=== PATIENT | male | born 1935 | race African-American/Black ===

== ENCOUNTER 2021-10-05 18:21 | Inpatient (IN) | payer OTHER ==
[~2021-10-05] VITALS: Ht 160 cm; Wt 70.8 kg
[2021-10-05] MEDS ORDERED: ACETAMINOPHEN 325MG TABLET PO STA (18:54)
[2021-10-05] MEDS ORDERED: IPRATROPIUM BROMIDE (0.02%) 0.5MG/2.5ML NEB HHN STA (18:54)
[2021-10-05] MEDS ORDERED: METHYLPREDNISOLONE SOD SUCC 125 MG/2 ML VIAL IV STA (18:54)
[2021-10-05] MEDS ORDERED: ALBUTEROL (0.083%) 2.5MG/3ML NEB HHN STA (18:54)
[2021-10-05] MEDS ORDERED: VANCOMYCIN 1 G PREMIX 200 ML IV ONE (19:00)
[2021-10-05] MEDS ORDERED: PIPERACILLIN/TAZ 3.375G PREMIX 50 ML IV ONE (19:00)
[2021-10-05] MEDS ORDERED: SODIUM CHLORIDE 0.9% 1,000 ML IV ONE (19:00)
[2021-10-05 19:21] LABS: HEMATOCRIT. 34.7 % (42.0-52.0); HEMOGLOBIN. 10.8 g/dL (14.0-18.0); MEAN CORPUSCULAR HEMOGLOBIN 25.2 pg (28.0-32.0); MEAN CORPUSCULAR VOLUME 81.3 fL (80.0-94.0); PLATELET 227 x1000/uL (130-400); RED BLOOD CELL COUNT 4.27 mill/uL (4.7-6.1); RED CELL DISTRIBUTION WIDTH 21.5 % (11.6-14.6)
[2021-10-05 19:27] LABS: PROTHROMBIN TIME 10.9 sec (9.6-11.0)
[2021-10-05 19:50] LABS: CHLORIDE 99 mEq/L (98-107)
[2021-10-05] MEDS ORDERED: SODIUM CHLORIDE 0.9% 1000ML BAG (SEPSIS BOLUS) IV ONE (20:30)
[2021-10-05 21:03] LABS: PLATELET ESTIMATE NORMAL
[2021-10-05 21:33] LABS: CLARITY URINE TURBID (CLEAR); COLOR URINE YELLOW (YELLOW); KETONES URINE TRACE (NEGATIVE); LEUKOCYTE ESTERASE URINE 3+ (NEGATIVE); NITRITE URINE NEGATIVE (NEGATIVE); OCCULT BLOOD URINE 2+ (NEGATIVE); PROTEIN URINE 2+ (NEGATIVE); SPECIFIC GRAVITY URINE 1.017 (1.005-1.030)
[2021-10-06] MEDS ORDERED: ALBUTEROL (0.083%) 2.5MG/3ML NEB HHN STA (01:17)
[2021-10-06] MEDS ORDERED: IPRATROPIUM BROMIDE (0.02%) 0.5MG/2.5ML NEB HHN STA (01:17)
[2021-10-06] MEDS ORDERED: MAGNESIUM 2 G PREMIX 50 ML IV ONE (01:30)
[2021-10-06] MEDS ORDERED: ACETAMINOPHEN 500MG TABLET PO SCH (02:00)
[2021-10-06] MEDS ORDERED: SODIUM CHLORIDE 0.9% 1,000 ML IV SCH (02:00)
[2021-10-06] MEDS ORDERED: ONDANSETRON HCL 4MG/2ML INJ IV PRN (08:15)
[2021-10-06] MEDS ORDERED: ALBUTEROL 6.7GM HFA INHALER ORI PRN (08:15)
[2021-10-06] MEDS ORDERED: LEVOFLOXACIN 500MG PREMIX 100 ML IV SCH ×2 (08:30→11:45)
[2021-10-06] MEDS: ENOXAPARIN 30MG/0.3ML SYR SUBCUT SCH (10:42)
[2021-10-06] MEDS ORDERED: ALBUTEROL (0.083%) 2.5MG/3ML NEB HHN PRN (11:45)
[2021-10-06] MEDS: IPRATROPIUM/ALBUTEROL 0.5-3(2.5)MG/3ML NEB HHN SCH (12:00)
[2021-10-06] MEDS: METHYLPREDNISOLONE SOD SUCC 40 MG/ML VIAL IV SCH ×2 (12:00→20:35)
[2021-10-06 18:26] VITALS: BP 132/72
[2021-10-06 20:27] VITALS: BP 106/68
[2021-10-06] MEDS: ACETAMINOPHEN 325MG TABLET PO PRN (20:56)
[2021-10-06 22:07] VITALS: BP 102/64
[2021-10-07] VITALS (13 sets, daily range): BP systolic 101–153; BP diastolic 59–87
[2021-10-07] MEDS: METHYLPREDNISOLONE SOD SUCC 40 MG/ML VIAL IV SCH ×3 (04:17→17:52)
[2021-10-07 07:17] LABS: HEMATOCRIT. 30.5 % (42.0-52.0); HEMOGLOBIN. 9.6 g/dL (14.0-18.0); MEAN CORPUSCULAR VOLUME 82.8 fL (80.0-94.0); MEAN PLATELET VOLUME 9.8 fl (7.4-10.4); PLATELET 142 x1000/uL (130-400); RED BLOOD CELL COUNT 3.68 mill/uL (4.7-6.1); RED CELL DISTRIBUTION WIDTH 21.8 % (11.6-14.6)
[2021-10-07] MEDS: ENOXAPARIN 30MG/0.3ML SYR SUBCUT SCH (08:40)
[2021-10-07] MEDS: IPRATROPIUM/ALBUTEROL 0.5-3(2.5)MG/3ML NEB HHN SCH ×3 (08:46→21:55)
[2021-10-07] MEDS: LEVOFLOXACIN 250MG PREMIX 50 ML IV SCH (10:39)
[2021-10-07] MEDS: ACETAMINOPHEN 325MG TABLET PO PRN ×2 (11:12→19:48)
[2021-10-07] MEDS ORDERED: AMLO2.5T2 MT (13:21)
[2021-10-07] MEDS ORDERED: CALC1TAB MT (13:21)
[2021-10-07] MEDS ORDERED: ASPI-1497 MT (13:21)
[2021-10-07] MEDS ORDERED: ALLO100T MT (13:21)
[2021-10-07] MEDS ORDERED: LEVO100T MT (13:21)
[2021-10-07] MEDS ORDERED: DABI75CA3 MT (13:21)
[2021-10-07] MEDS ORDERED: MAGN200T5 PO (13:21)
[2021-10-07] MEDS ORDERED: CHOL2000 (13:21)
[2021-10-07] MEDS ORDERED: OMEP20TA2 MT (13:21)
[2021-10-07] MEDS ORDERED: ATOR20TA65 MT (13:21)
[2021-10-07] MEDS ORDERED: LISI20TA31 MT (13:21)
[2021-10-07] MEDS ORDERED: BISO5TAB13 MT (13:21)
[2021-10-07] MEDS ORDERED: LEVE500T98 MT (13:21)
[2021-10-07] MEDS ORDERED: AZTREONAM 2 GM in DEXT 5% WATER 100 ML IV SCH (16:00)
[2021-10-07 17:01] LABS: PLATELET ESTIMATE NORMAL
[2021-10-07] MEDS ORDERED: GUAIFENESIN-DM 200MG-20MG/10ML UDC PO PRN (17:45)
[2021-10-08] VITALS (11 sets, daily range): BP systolic 130–160; BP diastolic 73–119
[2021-10-08] MEDS: IPRATROPIUM/ALBUTEROL 0.5-3(2.5)MG/3ML NEB HHN SCH ×6 (04:30→22:24)
[2021-10-08] MEDS: METHYLPREDNISOLONE SOD SUCC 40 MG/ML VIAL IV SCH (08:07)
[2021-10-08] MEDS: ACETAMINOPHEN 325MG TABLET PO PRN ×2 (08:07→19:44)
[2021-10-08] MEDS: ENOXAPARIN 30MG/0.3ML SYR SUBCUT SCH (08:07)
[2021-10-08] MEDS: LEVOFLOXACIN 250MG PREMIX 50 ML IV SCH (10:20)
[2021-10-08] MEDS ORDERED: AMLODIPINE 10MG TABLET PO SCH (11:15)
[2021-10-08 11:53] LABS: HEMATOCRIT. 31.8 % (42.0-52.0); HEMOGLOBIN. 9.8 g/dL (14.0-18.0); MEAN CORPUSCULAR VOLUME 80.9 fL (80.0-94.0); MEAN PLATELET VOLUME 9.9 fl (7.4-10.4); PLATELET 173 x1000/uL (130-400); RED BLOOD CELL COUNT 3.92 mill/uL (4.7-6.1); RED CELL DISTRIBUTION WIDTH 21.7 % (11.6-14.6)
[2021-10-08 12:45] LABS: CHLORIDE 107 mEq/L (98-107)
[2021-10-08] MEDS: DILTIAZEM HCL 5MG/ML 5ML VIAL IV PRN ×2 (14:51→21:06)
[2021-10-08] MEDS: DILTIAZEM HCL 60MG TABLET PO SCH ×2 (16:25→23:14)
[2021-10-08] MEDS: DILTIAZEM HCL 5MG/ML 5ML VIAL IV NR ×2 (16:39→18:47)
[2021-10-08] MEDS ORDERED: LEVO500T89 MT (17:56)
[2021-10-08 20:24] LABS: PLATELET ESTIMATE NORMAL
[2021-10-08] MEDS: AMIODARONE HCL 200 MG TABLET PO SCH (23:14)
[2021-10-08] MEDS ORDERED: DILTIAZEM HCL 5MG/ML 5ML VIAL IV PRN (23:45)
[2021-10-09] VITALS (13 sets, daily range): BP systolic 118–156; BP diastolic 65–85
[2021-10-09] MEDS: IPRATROPIUM/ALBUTEROL 0.5-3(2.5)MG/3ML NEB HHN SCH ×7 (02:07→23:15)
[2021-10-09] MEDS: AMIODARONE HCL 200 MG TABLET PO SCH ×3 (05:42→22:20)
[2021-10-09] MEDS: ACETAMINOPHEN 325MG TABLET PO PRN ×2 (05:42→19:14)
[2021-10-09] MEDS: DILTIAZEM HCL 60MG TABLET PO SCH ×3 (05:43→17:21)
[2021-10-09] MEDS: LEVOFLOXACIN 250MG PREMIX 50 ML IV SCH (09:03)
[2021-10-09] MEDS: ENOXAPARIN 30MG/0.3ML SYR SUBCUT SCH (09:04)
[2021-10-09] MEDS ORDERED: LEVOFLOXACIN 500MG PREMIX 100 ML IV SCH (20:00)
[2021-10-09] MEDS: SILDENAFIL CITRATE 20MG TABLET PO SCH (22:20)
[2021-10-10] VITALS (8 sets, daily range): BP systolic 117–138; BP diastolic 64–78
[2021-10-10] MEDS: DILTIAZEM HCL 60MG TABLET PO SCH ×3 (00:30→12:34)
[2021-10-10] MEDS: SILDENAFIL CITRATE 20MG TABLET PO SCH (05:43)
[2021-10-10] MEDS: AMIODARONE HCL 200 MG TABLET PO SCH (05:43)
[2021-10-10] MEDS: IPRATROPIUM/ALBUTEROL 0.5-3(2.5)MG/3ML NEB HHN SCH ×2 (08:01→12:02)
[2021-10-10] MEDS: ACETAMINOPHEN 325MG TABLET PO PRN (08:55)
[2021-10-10] MEDS ORDERED: ENOXAPARIN 40MG/0.4ML SYR SUBCUT SCH (09:00)
[2021-10-10 11:09] LABS: HEMATOCRIT. 32.4 % (42.0-52.0); HEMOGLOBIN. 10.2 g/dL (14.0-18.0); MEAN CORPUSCULAR HEMOGLOBIN 25.3 pg (28.0-32.0); MEAN PLATELET VOLUME 8.8 fl (7.4-10.4); PLATELET 213 x1000/uL (130-400); RED BLOOD CELL COUNT 4.05 mill/uL (4.7-6.1); RED CELL DISTRIBUTION WIDTH 21.8 % (11.6-14.6)
[2021-10-10 18:17] LABS: PLATELET ESTIMATE NORMAL
[2021-10-11] MEDS ORDERED: ENOXAPARIN 30MG/0.3ML SYR SUBCUT SCH (09:00)
[2021-10-11] MEDS ORDERED: LEVOFLOXACIN 750MG PREMIX 150 ML IV SCH (20:00)
== END 2021-10-10 14:38 | disposition home or self-care (01) | DRG 871 ==
LOC: ER 18:21 → MICUSO 20:41 → EDBEDREQ 20:58 → EDBEDREQSVC 20:58 → EDBEDREQTM 20:58 → MICUSO 10-06 05:22 → 3WST 10-06 18:17
PROVIDERS: ADMIT Internal Medicine; ATTEND Internal Medicine
DX: A41.51 Sepsis due to Escherichia coli [E. coli] (principal); N17.0 Acute kidney failure with tubular necrosis; J96.01 Acute respiratory failure with hypoxia; E44.0 Moderate protein-calorie malnutrition; E87.1 Hypo-osmolality and hyponatremia; J44.1 Chronic obstructive pulmonary disease with (acute) exacerbation; N39.0 Urinary tract infection, site not specified; E11.22 Type 2 diabetes mellitus with diabetic chronic kidney disease; I12.9 Hypertensive chronic kidney disease with stage 1 through stage 4 chronic kidney disease, or unspecified chronic kidney disease; N18.2 Chronic kidney disease, stage 2 (mild); I27.20 Pulmonary hypertension, unspecified; I48.91 Unspecified atrial fibrillation; D64.9 Anemia, unspecified; I35.0 Nonrheumatic aortic (valve) stenosis; Z20.822 Contact with and (suspected) exposure to COVID-19; G40.909 Epilepsy, unspecified, not intractable, without status epilepticus; R65.20 Severe sepsis without septic shock; Z87.891 Personal history of nicotine dependence; Z68.27 Body mass index [BMI] 27.0-27.9, adult; Z86.79 Personal history of other diseases of the circulatory system; Z83.3 Family history of diabetes mellitus; Z88.6 Allergy status to analgesic agent; Z88.0 Allergy status to penicillin; Z88.8 Allergy status to other drugs, medicaments and biological substances
CPT/HCPCS: 36415; 71045; 76770; 80048; 80053; 81003; 83036; 83605; 83880; 84145; 84484; 85025; 87077; 87186; 87804; 93005; 93306; 94640; 97162; 99291; J1650; J1956; J2543; J2920; J2930; J3370; J3475; J3490; J7030; J7060; U0003; U0005; A4315

== ENCOUNTER 2022-05-05 12:57 | Emergency (ER) | payer OTHER ==
[~2022-05-05] VITALS: Ht 175.3 cm; Wt 102.0 kg
[~2022-05-05 12:57] MED LIST: ALLO100T MT; AMLO2.5T2 MT; ASPI-1497 MT; ATOR20TA65 MT; BISO5TAB13 MT; CALC1TAB MT; CHOL2000; DABI75CA3 MT; ETOMIDATE 2MG/ML 10ML VIAL IV ONE; LEVE500T98 MT; LEVO100T MT; LEVO500T90 MT; LISI20TA31 MT; MAGN200T5 PO; OMEP20TA23 MT; VECURONIUM BROMIDE 10 MG/VIAL IV ONE
[2022-05-05] MEDS ORDERED: LEVETIRACETAM 1000MG PREMIX 100 ML IV ONE (13:15)
[2022-05-05] MEDS ORDERED: CEFTRIAXONE 1 G PREMIX 50 ML IV ONE (13:45)
[2022-05-05] MEDS ORDERED: SODIUM CHLORIDE 0.9% 1,000 ML IV ONE ×2 (13:45→16:00)
[2022-05-05] MEDS ORDERED: MIDAZOLAM 100MG/100ML PREMIX IV PRN (13:45)
[2022-05-05] MEDS ORDERED: FENTANYL 2500MCG/250ML PMX 250 ML IV PRN (13:45)
[2022-05-05] MEDS ORDERED: VANCOMYCIN 1G PREMIX 200 ML IV ONE (13:45)
[2022-05-05] MEDS ORDERED: NICARDIPINE 100 MG in SODIUM CHLORIDE 0.9% 60 ML IV ONE (14:00)
[2022-05-05] MEDS ORDERED: PROPOFOL 10 MG/ML 100 ML IV PRN (14:00)
[2022-05-05] MEDS ORDERED: NICARDIPINE 40 MG/200 ML PREMIX 200 ML IV PRN (14:00)
[2022-05-05] MEDS ORDERED: LEVETIRACETAM 1000MG PREMIX 100 ML IV SCH ×2 (14:30→22:00)
[2022-05-05] MEDS ORDERED: CEFTRIAXONE 1 G PREMIX 50 ML IV NR (14:30)
[2022-05-05 14:46] LABS: BG BASE EXCESS -9.7 mmol/L (-2.0-2.0); BG CARBOXYHEMOGLOBIN 0.8 % (0.5-1.5); BG DEOXYHEMOGLOBIN 0.4 % (0.0-5.0); BG FRACTION INSPIRED OXYGEN 100; BG METHEMOGLOBIN 0.3 % (0.0-1.5); BG OXYGEN SATURATION 99.6 % (92.0-98.5); BG OXYHEMOGLOBIN 98.5 % (94.0-97.0); BG PO2 265.6 mmHg (75.0-100.0); BG SAMPLE SITE RIGHT RADIAL; BG TOTAL HEMOGLOBIN 14.3 g/dL (12.0-18.0); BG VENT MODE VENT - AC
[2022-05-05 15:25] LABS: HEMATOCRIT. 42.4 % (42.0-52.0); HEMOGLOBIN. 13.4 g/dL (14.0-18.0); MEAN CORPUSCULAR VOLUME 95.2 fL (80.0-94.0); MEAN PLATELET VOLUME 9.6 fl (7.4-10.4); PLATELET 305 x1000/uL (130-400); RED BLOOD CELL COUNT 4.45 mill/uL (4.7-6.1)
[2022-05-05 16:25] LABS: CHLORIDE 101 mEq/L (98-107)
[2022-05-05] MEDS ORDERED: IOHEXOL-350 100 ML BOTTLE ONE (16:59)
[2022-05-05 17:08] LABS: BG BASE EXCESS -6.4 mmol/L (-2.0-2.0); BG CARBOXYHEMOGLOBIN 0.2 % (0.5-1.5); BG DEOXYHEMOGLOBIN 10.8 % (0.0-5.0); BG FRACTION INSPIRED OXYGEN 50; BG HCO3 ACT 19.4 mmol/L (22.0-26.0); BG METHEMOGLOBIN 0.1 % (0.0-1.5); BG OXYGEN SATURATION 89.2 % (92.0-98.5); BG OXYHEMOGLOBIN 88.9 % (94.0-97.0); BG PCO2 39.9 mmHg (35.0-45.0); BG PH 7.305 (7.350-7.450); BG SAMPLE SITE RIGHT RADIAL; BG TOTAL HEMOGLOBIN 12.3 g/dL (12.0-18.0); BG VENT MODE VENT - AC
[2022-05-05 18:14] LABS: PLATELET ESTIMATE NORMAL
[2022-05-05 18:30] VITALS: BP 124/71
== END 2022-05-05 18:54 | disposition short-term general hospital (02) ==
LOC: ER 12:57 → CANBEDREQ 18:54
DX: G40.901 Epilepsy, unspecified, not intractable, with status epilepticus (principal); J96.90 Respiratory failure, unspecified, unspecified whether with hypoxia or hypercapnia; Z20.822 Contact with and (suspected) exposure to COVID-19; E87.2 Acidosis; D72.829 Elevated white blood cell count, unspecified; I10 Essential (primary) hypertension; F10.10 Alcohol abuse, uncomplicated; Y90.9 Presence of alcohol in blood, level not specified
CPT/HCPCS: 31500; 36415; 36600; 70450; 70496; 70498; 71045; 80053; 82140; 82375; 82805; 83605; 83690; 83880; 84484; 85025; 87040; 87426; 94002; 96365; 96366; 96368; 96375; 99291; C9803; J0696; J1953; J2250; J2704; J3010; J3370; J3490; J7030; Q9967; J7050; A4315